=== PATIENT | male | born 1975 | race African-American/Black ===

== ENCOUNTER 2019-10-06 10:30 | Emergency (ER) | payer BC, SELFPAY ==
[2019-10-06 10:56] VITALS: BP 147/89; PULSE 88; RESP 20; TEMP 36.8; O2SAT 98
--- NOTE | 2019-10-06 11:52 | ED.URI ---
HPI - URI/Sore Throat General Chief Complaint: Upper Respiratory Infection Stated Complaint: Flu like symptoms Time Seen by Provider: 10/06/19 11:52 Source: patient and RN notes reviewed Mode of arrival: ambulatory Limitations: no limitations History of Present Illness HPI Narrative: 44-year-old male who presents to [facility] care with complaints of cough with congestion and expectoration of yellow mucus headache, body aches, fevers for the past 2 days. 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 Patient states cough is productive of yellow mucus denies any shortness of breath at rest or with exertion, lungs clear to auscultation with SaO2 98% on room air. Patient did not take flu shot this year Related Data Allergies Allergy/AdvReac Type Severity Reaction Status Date / Time codeine Allergy Rash Verified 10/06/19 11:32 morphine Allergy Rash Verified 10/06/19 11:33 aspirin AdvReac Nausea and Verified 10/06/19 11:32 Vomiting Review of Systems Review of Systems: Narrative: CONSTITUTIONAL: Positive fever, chills, or sweats. EYES: Denies visual changes, redness, or discharge. ENT: positive rhinorrhea, congestion, no sore throat, or otalgia. CARDIOVASCULAR: Denies chest pain, palpitations, or edema. RESPIRATORY: Positive cough denies dyspnea. GASTROINTESTINAL: Denies abdominal pain, nausea, vomiting, or diarrhea. GENITOURINARY: Denies dysuria or hematuria. SKIN: Denies rash or itching. MUSCULOSKELETAL: Denies back pain, joint pain, body aches NEUROLOGIC: Positive headache, no numbness, or weakness. PSYCHIATRIC: Denies anxiety or depression. All systems reviewed & are unremarkable except as noted in HPI and below PMFSH Past Medical History Medical History (Updated 10/06/19 @ 12:13 by Elsie Christianson NP) Brain cancer Seizures Social History Social History (Updated 10/06/19 @ 12:10 by Elsie Christianson NP) Smoking status: Never smoker Living arrangements: with family Gender identity (if verbalized by the patient): Male Comments At time of signature, agree with nursing past medical, surgical, social and family history. There is no relevant family history pertinent to the presenting complaint Exam Narrative: Exam Narrative: GENERAL: Well-appearing, well-nourished, and in no acute distress. HEAD: Normocephalic, atraumatic. EYES: PERRLA and EOMI. ENT: Nares red with clear rhinorrhea no epistaxis. Mucous membranes moist. TMs normal with good light reflex, throat has mild redness with no lesions or exudates postnasal drainage noted NECK: Supple. No lymphadenopathy CHEST: Clear to auscultation. No respiratory distress productive cough of yellowish mucus SaO2 98% on room air. HEART: Regular rate and rhythm. No murmur heard. Normal peripheral pulses. ABDOMEN: Soft, nontender, nondistended, normal active bowel sounds. EXTREMITIES: Normal range of motion. No edema. SKIN: Warm, dry, no rash. NEURO: No focal deficits. Alert and oriented x3. Course Vital Signs Vital signs: Vital Signs Temperature 36.8 C 10/06/19 10:56 Pulse Rate 88 10/06/19 10:56 Respiratory Rate 10/06/19 10:56 Blood Pressure 147/89 H 10/06/19 10:56 Pulse Oximetry 98 10/06/19 10:56 Temperature 36.8 C 10/06/19 10:56 Pulse Rate 88 10/06/19 10:56 Respiratory Rate 10/06/19 10:56 Blood Pressure 147/89 H 10/06/19 10:56 Pulse Oximetry 98 10/06/19 10:56 MDM - URI/Sore Throat MDM Narrative Medical decision making narrative: Upper respiratory infection, influenza, rhino sinusitis, viral syndrome, cough Medical Records Attestation: I reviewed the patient's medical records. Lab Data Attestation: I reviewed the patient's lab results. Lab results narrative: Influenza A positive, influenza B negative Labs: Influenza A Screen Positive Reference Range: Negative Influenza B Screen Negative Reference Range: Negative
== END 2019-10-06 12:05 | disposition home or self-care (01) ==
PROVIDERS: Emergency Provider Registered Nurse
DX: J10.1 Influenza due to other identified influenza virus with other respiratory manifestations (principal); G40.909 Epilepsy, unspecified, not intractable, without status epilepticus; Z85.841 Personal history of malignant neoplasm of brain
CPT/HCPCS: 87804; 99203; G0463

== ENCOUNTER 2021-04-18 13:19 | Emergency (ER) | payer OTHER, SELFPAY ==
--- NOTE | ~2021-04-18 | XR_ITS ---
EXAMINATION: XR chest 2V EXAM DATE: 04/18/2021 14:09 INDICATION: Chest congestion for 2 days. TECHNIQUE: Frontal and lateral projections of the chest obtained and reviewed. There is no prior mg dy for comparison. FINDINGS: The lungs are clear. There are no pleural effusions. The cardiomediastinal silhouette is within normal limits. There is no pneumothorax suspected. The bones and soft tissues are unremarkab le. IMPRESSION: No acute cardiopulmonary findings. Reviewed, dictated and finalized at location A.
[2021-04-18 13:24] VITALS: BP 140/100; PULSE 65; RESP 14; TEMP 36.7; O2SAT 99
--- NOTE | 2021-04-18 13:25 | ED.URI ---
HPI - URI/Sore Throat General Chief Complaint: Upper Respiratory Infection Stated Complaint: congestion Time Seen by Provider: 04/18/21 13:37 Source: patient and RN notes reviewed Mode of arrival: ambulatory Limitations: no limitations History of Present Illness HPI Narrative: 45-year-old male with history of brain cancer, seizures [place] with concern for cough, chest congestion that started Monday. Reports fatigue. Denies body aches, chills, sweats, fever. Denies rhinorrhea, nasal congestion, sore throat, headache, diarrhea, nausea, vomiting. Reports taking Mucinex. He reports he has been vaccinated for Covid, denies any known sick contacts. MD elicited complaint: cough Related Data Home Medications Medication Instructions Recorded Confirmed gabapentin 300 mg PO DAILY 10/06/19 10/06/19 phenytoin sodium extended PO 10/06/19 [Dilantin Extended] gabapentin 04/18/21 linaclotide [Linzess] mcg 04/18/21 04/18/21 propranolol 04/18/21 sumatriptan succinate mg PO 04/18/21 Allergies Allergy/AdvReac Type Severity Reaction Status Date / Time codeine Allergy Rash Verified 04/18/21 13:38 morphine Allergy Rash Verified 04/18/21 13:38 aspirin AdvReac Nausea and Verified 04/18/21 13:38 Vomiting Review of Systems Review of Systems: CONSTITUTIONAL: Denies malaise, chills, sweats, or fever. Reports fatigue EYES: Denies visual changes, redness, or discharge. ENT: Denies rhinorrhea, congestion, sinus pain, otalgia and sore throat. CARDIOVASCULAR: Denies chest pain, palpitations, or edema. RESPIRATORY: Reports cough, chest congestion. Denies dyspnea. GASTROINTESTINAL: Denies abdominal pain, nausea, vomiting, diarrhea SKIN: Denies rash or itching. MUSCULOSKELETAL: Denies myalgia. NEUROLOGIC: Denies headache. All systems reviewed & are unremarkable except as noted in HPI and below PMFSH Past Medical History Medical History (Updated 04/18/21 @ 14:10 by Lisa Trujillo NP) Brain cancer Seizures Social History Social History (Updated 10/06/19 @ 12:10 by Elsie Christianson NP) Smoking status: Never smoker Gender identity (if verbalized by the patient): Male Comments At time of signature, agree with nursing past medical, surgical, social and family history. There is no relevant family history pertinent to the presenting complaint Exam Narrative: GENERAL: Well-appearing, well-nourished, and in no acute distress. HEAD: Normocephalic EYES: PERRLA, conjunctivae clear ENT: Nares clear. Mucous membranes moist. TM pearly ellis with dull light reflex bilaterally; no tragal tenderness. Oropharynx not erythematous without lesions. Tonsils not enlarged and without exudate, no drooling, no hoarseness, no trismus, uvula midline. NECK: Supple. No lymphadenopathy CHEST: Scattered rhonchi, decreased aeration in the right upper lobe. No wheezing, rales, or stridor. No respiratory distress, speaks in full sentences. HEART: Regular rate and rhythm. No murmur heard. SKIN: Warm, dry, no rash. NEURO: Alert and oriented x3. PSYCH: Normal mood and affect Course Course Emergency Course: Patient is aware of diagnosis, understands and agrees to treatment plan. Anticipatory guidance given. Patient agrees to follow-up as directed and is aware of reasons to seek care at the emergency department. Portions of this record may have been created with voice recognition software Vital Signs Vital signs: Reviewed. Patient has history of hypertension MDM - URI/Sore Throat MDM Narrative Medical decision making narrative: Differential diagnosis considered: Perkins virus, strep pharyngitis, allergic rhinitis, upper respiratory tract infection, sinusitis, rhinosinusitis, nasopharyngitis. viral pharyngitis, otitis media, otitis externa, pneumonia, bronchitis, viral cough syndrome, viral syndrome, and influenza. Exam findings show no acute concerns or changes; patient is non-toxic appearing and is in no distress. Patient is appropriate for outpatient t
[2021-04-18 13:39] VITALS: BP 140/100; PULSE 65; RESP 14; TEMP 36.7; O2SAT 99
[2021-04-19 18:40] LABS: SARS-CoV-2 RNA PCR Negative
== END 2021-04-18 14:34 | disposition home or self-care (01) ==
PROVIDERS: Emergency Provider Nurse Practitioner
DX: R05 Cough (principal); R09.89 Other specified symptoms and signs involving the circulatory and respiratory systems
CPT/HCPCS: 71046; 99213; C9803; G0463; U0003; U0005